=== PATIENT | female | born 1940 | race Caucasian/White ===

== ENCOUNTER → 2020-04-18 | Day surgery (SDC) | payer MEDICARE, BC ==
[~2020-04-18] MED LIST: Propofol 200 MG/20 ML SDV IV ONE; ePHEDrine 50 MG/ML SDV IV ONE; fentaNYL 100 MCG/2 ML SDV IV ONE
[2020-04-18] MEDS: Lactated Ringers 1,000 ML IV SCH (07:38)
[2020-04-18 09:11] VITALS: BP 139/73; PULSE 76
--- NOTE | 2020-04-18 12:00 | OR ---
DATE OF OPERATION: 04/18/2020 PREOPERATIVE DIAGNOSIS: CHRONIC GASTROESOPHAGEAL REFLUX DISEASE. POSTOPERATIVE DIAGNOSIS: CHRONIC GASTROESOPHAGEAL REFLUX DISEASE. SURGEON: Tuan Casey MD PROCEDURE: DIAGNOSTIC EGD WITH BIOPSIES X4, MELANIE. ANESTHESIA: MAC. COMPLICATIONS: None. SPECIMEN: 1. Antral biopsy x2. 2. Fundal biopsy x1. 3. Distal esophageal biopsy x1. 4. Antral MELANIE. FINDINGS: 1. Full-length EGD. 2. Mild chronic-appearing gastritis, diffuse. 3. Small hiatal hernia with spontaneous GERD. 4. Mild grade 1 distal reflux esophagitis. RECOMMENDATIONS: Ongoing medical treatment. INDICATIONS: Patient has been having some ongoing issues with reflux. Dr. Ahmadi sent her for diagnostic scope. DESCRIPTION OF PROCEDURE: The patient was prepped and draped, placed in the left lateral decubitus position. A lubricated Olympus gastroscope was inserted over a bit, advanced to cricopharyngeus area and easily intubated into the esophagus. The esophageal lining appeared benign in its entire course until most distally there was some very mild grade 1 esophagitis, linear in nature at a couple different sites. No signs of stricturing, ulceration, or William's changes. Biopsy was taken of the reimbursement representative area. There may be a small hiatal hernia present and spontaneous reflux was seen. Z-line was crisp and sharp at 35 to 36 cm. The scope was advanced into the stomach, through the pylorus, and into the second portion of the duodenum. This and the duodenal bulb were benign. The scope was brought back into the stomach and retroflexed. The upper fundus and cardia were evaluated and for the most part unremarkable. Upon straightening, there were skip areas throughout most of the fundus and antrum showing some mild smoldering chronic gastritis. We did biopsies at the fundus and two at the antrum along with a CLOtest. No other masses or lesions were seen. Air was suctioned. Scope removed without complication. MADISON/SHARON /[id number]
== END ==
LOC: CC.SDS 07:18
PROVIDERS: ATTEND Family Medicine
DX: K29.50 Unspecified chronic gastritis without bleeding (principal); K21.0 Gastro-esophageal reflux disease with esophagitis; K44.9 Diaphragmatic hernia without obstruction or gangrene; I10 Essential (primary) hypertension; E03.9 Hypothyroidism, unspecified; G20 Parkinson's disease; E78.5 Hyperlipidemia, unspecified; Z11.59 Encounter for screening for other viral diseases; Z79.899 Other long term (current) drug therapy; Z91.012 Allergy to eggs
CPT/HCPCS: 00731; 43239; 87081; 88305; J2704; J3010; J7120; U0002